=== PATIENT | male | born 1985 | race Asian ===

== ENCOUNTER 2020-07-04 17:47 | Emergency (ER) | payer SELFPAY ==
[~2020-07-04] VITALS: Ht 167.6 cm; Wt 68.1 kg
[2020-07-04] MEDS ORDERED: ONDANSETRON ODT 4 MG TAB.RAPDIS. PO ONE (18:15)
[2020-07-04] MEDS ORDERED: IV NORMAL SALINE 1000ML BAG 1,000 ML IV ONE (18:15)
--- NOTE | 2020-07-04 18:17 | PHYS DOC ---
Past Medical History Past Medical History: No Pertinent History Past Surgical History: No Surgical History Smoking Status: Current Every Day Smoker Alcohol Use: Heavy General Adult EDM: Chief Complaint: DIZZY/LIGHT HEADED HPI: HPI: History obtained from patient. Patient is a 34-year-old male with no reported past medical history who presents with chief complaint of lightheadedness. Patient states he was hospitalized yesterday for alcohol intoxication. He states he was discharged home approximately 6 hours ago. He states ever since being discharged he has felt lightheaded. He notes some associated nausea. He states he has had some chest aching sensation that is been constant for 6 hours. He is unsure whether he was hit in the chest last night. He states it is worse when you push on his chest. Does note some associated shortness of breath. States that he was trying to find his way home and asked police for help and they encouraged him to go to the emergency department due to his symptoms. Denies any feelings of irregular rapid heartbeat. Denies syncope. Denies vertiginous symptoms. Denies headache. States that he did drink quite a bit last night. He is unsure exactly how much. He denies any drug use outside of marijuana. History of coronary artery disease. Denies history of blood clot in legs or lungs. Chart review was performed and patient was hospitalized last night for alcohol induced pancreatitis. His urine drug screen was positive for amphetamines and marijuana. He denies any amphetamine usage to me. No other complaints. Patient denies any history of immobilization greater than 48 hours, recent hospitalizations, recent surgery, recent trauma, , oral contraceptive usage, hormone replacement therapy, air travel greater than 8 hours, recent infectious disease, or general deterioration of their overall condition. Review of Systems: Review of Systems: Constitutional: Denies fever or chills. [] Eyes: Denies change in visual acuity. [] HENT: Denies nasal congestion or sore throat. [] Respiratory: Positive shortness of breath Cardiovascular: positive for chest pain GI: Denies abdominal pain, nausea, vomiting, bloody stools or diarrhea. [] : Denies dysuria. [] Musculoskeletal: Denies back pain or joint pain. [] Integument: Denies rash. [] Neurologic: Denies headache, focal weakness or sensory changes. [] Endocrine: Denies polyuria or polydipsia. [] Lymphatic: Denies swollen glands. [] Psychiatric: Denies depression or anxiety. [] Heart Score: Risk Factors: Risk Factors: DM, Current or recent (<one month) smoker, HTN, HLP, family history of CAD, obesity. Risk Scores: Score 0 - 3: 2.5% MACE over next 6 weeks - Discharge Home Score 4 - 6: 20.3% MACE over next 6 weeks - Admit for Clinical Observation Score 7 - 10: 72.7% MACE over next 6 weeks - Early Invasive Strategies Allergies: Allergies: Allergies Coded Allergies Type Severity Reaction Last Updated Verified No Known Drug Allergies 07/03/20 No Physical Exam: PE: Constitutional: Well developed, well nourished, no acute distress, non-toxic appearance. [] HENT: Normocephalic, atraumatic, bilateral external ears normal, oropharynx moist, no oral exudates, nose normal. [] Eyes: PERRLA, EOMI, conjunctiva normal, no discharge. [] Neck: Normal range of motion, no tenderness, supple, no stridor. [] Cardiovascular:Heart rate regular rhythm, no murmur [] Lungs & Thorax: Bilateral breath sounds clear to auscultation [] Abdomen: Bowel sounds normal, soft, no tenderness, no masses, no pulsatile masses. [] Skin: Warm, dry, no erythema, no rash. [] Back: No tenderness, no CVA tenderness. [] Extremities: No tenderness, no cyanosis, no clubbing, ROM intact, no edema. [] Neurologic: Alert and oriented X 3, normal motor function, normal sensory function, no focal deficits noted. [] Psychologic: Affect normal, judgement normal, mood normal. [] Current Patient Data: Labs: Laboratory Tests Test 07/04/20 18:25 White Blood Count 10.8 x10^3/uL Red Blood Count 4.67 x10^6/uL Hemoglobin 14.5 g/dL Hematocrit 42.9 % Mean Corpuscular Volume 92 fL Mean Corpuscular Hemoglobin 31 pg Mean Corpuscular Hemoglobin Concent 34 g/dL Red Cell Distribution Width 12.6 % Platelet Count 242 x10^3/uL Neutrophils (%) (Auto) 72 % Lymphocytes (%) (Auto) 20 % Monocytes (%) (Auto) 7 % Eosinophils (%) (Auto) 1 % Basophils (%) (Auto) 0 % Neutrophils # (Auto) 7.8 x10^3/uL Lymphocytes # (Auto) 2.2 x10^3/uL Monocytes # (Auto) 0.7 x10^3/uL Eosinophils # (Auto) 0.1 x10^3/uL Basophils # (Auto) 0.0 x10^3/uL Sodium Level 138 mmol/L Potassium Level 3.5 mmol/L Chloride Level 101 mmol/L Carbon Dioxide Level 32 mmol/L Anion Gap 5 Blood Urea Nitrogen 16 mg/dL Creatinine 0.9 mg/dL Estimated GFR (Cockcroft-Gault) 97.8 Glucose Level 102 mg/dL Calcium Level 8.8 mg/dL Troponin I Quantitative < 0.017 ng/mL Current Medications Medications (Trade) Dose Ordered Sig/Mable Route PRN Reason Start Time Stop Time Status Last Admin Dose Admin Sodium Chloride 1,000 ml @ 1,000 mls/hr 1X ONCE IV 07/04/20 18:15 07/04/20 19:14 07/04/20 18:35 Ondansetron HCl (Zofran Odt) 4 mg 1X ONCE PO 07/04/20 18:15 07/04/20 18:16 DC 07/04/20 18:34 EKG: EKG: EKG consistent with normal sinus rhythm. Ventricular rate of 80 bpm. [place] normal. Intervals normal. No acute ischemic changes. Otherwise normal EKG. [] Radiology/Procedures: Radiology/Procedures: [] Course & Med Decision Making: Course & Med Decision Making Pertinent Labs and Imaging studies reviewed. (See chart for details) [] Patient is a well-appearing 34-year-old male who presents with chief complai nt of lightheadedness associated with nausea. Initial vital signs normal. EKG unremarkable. Chest x-ray nonacute. Labs have been unremarkable as well. Patient was given IV fluid bolus. On repeat examination he is eating food in the room without difficulty. He states he is feeling much better after receiving fluids. Chart review was performed and patient was recently hospita lized for alcoholic induced pancreatitis. Yesterday he did have an elevated alcohol level. Overall have low suspicion for emergent etiology regarding the patient's symptoms. No red flag signs or symptoms regarding his lightheadedness. This could be related to his recent drug and alcohol usage. Or dehydration. At this time I do feel the patient is appropriate for discharge home. He was encouraged on substance abuse cessation. He was encouraged to drink plenty of fluids at home. Instructed to follow-up with his primary care physician in the next 2 to 3 days. He was able to tolerate p.o. and ambulate without assistance prior to discharge. Return precautions discussed and understood. Stable for discharge home. Lana Disclaimer: Lana Disclaimer: This electronic medical record was generated, in whole or in part, using a voice recognition dictation system. Departure Departure Impression: Primary Impression: Lightheadedness Disposition: 01 DC HOME SELF CARE/HOMELESS Condition: STABLE Referrals: NO PCP (PCP) Patient Instructions: Alcohol and Drug Addiction, Finding Treatment Additional Instructions: [facility] [address] [place] [address] [facility] [address] [place] [address] [facility] [address] [facility] [place] [address] [facility] [address] [place] [address] [facility] [address] [place] [address] [facility] [address] [place] [address] [facility] [address] [place] [address] [facility] [address] [place] [address] [facility] [address] [place] [address] [facility] [address] [place] [address] Scripts Ondansetron Hcl (ZOFRAN) 4 Mg Tablet 4 MG PO PRN TID PRN for NAUSEA, #9 nausea/vomiting Prov: EDGAR AMADOR DO 07/04/20 EDGAR AMADOR DO Jul 04, 2020 18:17
[2020-07-04 18:41] LABS: RED BLOOD COUNT 4.67 x10^6/uL (4.30-5.70); WHITE BLOOD COUNT 10.8 x10^3/uL (4.0-11.0)
[2020-07-04 18:42] LABS: BASO % 0 % (0-3); EOS # 0.1 x10^3/uL (0.0-0.7); EOS % 1 % (0-3); HEMATOCRIT 42.9 % (39.0-53.0); HEMOGLOBIN 14.5 g/dL (13.0-17.5); LYMPH # 2.2 x10^3/uL (1.0-4.8); LYMPH % 20 % (24-48); MEAN CORPUSCULAR HEMOGLOBIN 31 pg (25-35); MEAN CORPUSCULAR HGB CONC 34 g/dL (31-37); MEAN CORPUSCULAR VOLUME 92 fL (79-100); MONO # 0.7 x10^3/uL (0.0-1.1); MONO % 7 % (0-9); NEUT # 7.8 x10^3/uL (1.8-7.7); NEUT % 72 % (31-73); PLATELET COUNT 242 x10^3/uL (140-400); RED CELL DISTRIBUTION WIDTH 12.6 % (11.5-14.5)
[2020-07-04 18:48] LABS: CALCIUM 8.8 mg/dL (8.5-10.1); CREATININE 0.9 mg/dL (0.7-1.3); GFR 97.8; POTASSIUM 3.5 mmol/L (3.5-5.1)
[2020-07-04] MEDS ORDERED: ONDA4TAB7 PO (19:03)
--- NOTE | 2020-07-04 19:07 | RAD ---
Examination: CHEST AP ONLY History: Reason: CP / Comparison: 07/03/2020 AP view of the chest. Findings: AP portable upright frontal view of the chest was obtained. The cardiomediastinal silhouette is normal. Lungs are clear. There is no pneumothorax. No pleural effusion is appreciated. No acute bone abnormality. IMPRESSION: No acute cardiopulmonary process. Electronically signed by: Riaz Jacinto MD (07/04/2020 7:04 PM) [facility]
[2020-07-04 19:26] VITALS: BP 130/83
--- NOTE | 2020-07-05 14:17 | EKG ---
[facility] [address] [place] [address] Test Date: 2020-07-04 Test Time: 18:18:47 Pat Name: ÁNGELA HOUSTON Department: Room: Gender: M Public Relations Intern: : 1985 Requested By: EDGAR AMADOR Order Number: [id number] Reading MD: Measurements Intervals [place] Rate: 80 P: 59 MS: 184 QRS: 63 QRSD: 90 T: 51 QT: 356 QTc: 414 Interpretive Statements SINUS RHYTHM OTHERWISE NORMAL ECG RI6.02 No previous ECG available for comparison
== END 2020-07-04 19:30 | disposition home or self-care (01) ==
LOC: ER 17:47
DX: R42 Dizziness and giddiness (principal); R11.0 Nausea; R07.89 Other chest pain; F17.200 Nicotine dependence, unspecified, uncomplicated
CPT/HCPCS: 36415; 71045; 80048; 84484; 85025; 93005; 96360; 99285; J7030

== ENCOUNTER 2020-09-12 23:24 | Emergency (ER) | payer SELFPAY ==
[~2020-09-12] VITALS: Ht 167.6 cm; Wt 84.1 kg
[~2020-09-12 23:24] MED LIST: ONDA4TAB7 PO
[2020-09-12 23:26] VITALS: BP 130/83
[2020-09-12] MEDS ORDERED: IBUPROFEN 400 MG TABLET. PO ONE (23:30)
--- NOTE | 2020-09-13 00:22 | RAD ---
LEFT ANKLE AP, LATERAL Clinical Indication: Reason: ankle pain / Spl. Instructions: / History: Comparison: None. Findings: Sensitivity decreased without third view. There is acute traumatic nondisplaced transverse fracture of the medial malleolus. Additional nondisp laced fracture lines may be present. There is a sliver of bone medial to the medial malleolus which c ould be a fracture fragment. There is mild medial ankle soft tissue swelling. There is ankle joint ef fusion. Visualized bones of the foot unremarkable. Distal fibula appears intact. IMPRESSION: Acute traumatic nondisplaced fracture of the medial malleolus. Electronically signed by: Stanford Rudolph MD (09/13/2020 12:19 AM) KEY
--- NOTE | 2020-09-13 00:39 | PHYS DOC ---
Past Medical History Past Medical History: No Pertinent History Past Surgical History: No Surgical History Smoking Status: Current Every Day Smoker Alcohol Use: Heavy Adult General Chief Complaint Chief Complaint: LOWEREXTREMITY INJURY HPI HPI Patient is a 34 year old male presenting the emergency department complaining of the sudden ankle pain. Patient states that he ate started fracture after a fall approximately 2 weeks ago but did not get any orthopedic follow-up and at this point with himself. Patient states it is bothering him today. No additional injury. States that he was more sore today after walking that day. Denies any additional symptoms. Review of Systems Review of Systems Constitutional: Denies fever or chills [] Eyes: Denies change in visual acuity, redness, or eye pain [] HENT: Denies nasal congestion or sore throat [] Respiratory: Denies cough or shortness of breath [] Cardiovascular: No additional information not addressed in HPI [] GI: Denies abdominal pain, nausea, vomiting, bloody stools or diarrhea [] : Denies dysuria or hematuria [] Musculoskeletal: Denies back pain or joint pain [] Integument: Denies rash or skin lesions [] Neurologic: Denies headache, focal weakness or sensory changes [] Endocrine: Denies polyuria or polydipsia [] All other systems were reviewed and found to be within normal limits, except as documented in this note. Current Medications Current Medications Current Medications Medications (Trade) Dose Ordered Sig/[facility] Start Time Stop Time Status Last Admin Dose Admin Ibuprofen (Motrin) 800 mg 1X ONCE 09/12/20 23:30 09/12/20 23:33 DC Allergies Allergies Allergies Coded Allergies Type Severity Reaction Last Updated Verified No Known Drug Allergies 07/03/20 No Physical Exam Physical Exam Constitutional: Well developed, well nourished, no acute distress, non-toxic appearance. [] HENT: Normocephalic, atraumatic, bilateral external ears normal, oropharynx moist, no oral exudates, nose normal. [] Eyes: PERRLA, EOMI, conjunctiva normal, no discharge. [] Neck: Normal range of motion, no tenderness, supple, no stridor. [] Cardiovascular:Heart rate regular rhythm, no murmur [] Lungs & Thorax: Bilateral breath sounds clear to auscultation [] Abdomen: Bowel sounds normal, soft, no tenderness, no masses, no pulsatile ma sses. [] Skin: Warm, dry, no erythema, no rash. [] Back: No tenderness, no CVA tenderness. [] Extremities: No tenderness, no cyanosis, no clubbing, ROM intact, no edema. [] Neurologic: Alert and oriented X 3, normal motor function, normal sensory function, no focal deficits noted. [] Psychologic: Affect normal, judgement normal, mood normal. [] EKG EKG [] Radiology/Procedures Radiology/Procedures [] Course & Med Decision Making Course & Med Decision Making Pertinent Labs and Imaging studies reviewed. (See chart for details) 34M to have his left ankle recheck. We will obtain her repeat x-ray to make sure there is no worsening of fracture or displacement. X-ray does demonstrate left medial malleolus fracture with no significant displacement. Will replace splint and discharge patient I spoken with the patient and her caregivers. I explained the patient's condition, diagnoses and treatment plan based on the information available to me at this time. I have answered the patient and her caregiver's questions and addressed any concerns. The patient and her caregivers have a good understanding of patient's diagnosis, condition and treatment plan as can be expected at this point. Vital signs have been stable. Patient's condition is stable and appropriate for discharge from the emergency department. Patient will pursue further outpatient evaluation with primary care physician or other designated or consulting physician as outlined in the discharge instructions. The patient and/or caregivers are agreeable to this plan of care and follow-up instructions have been explained in detail. The patient and/or caregivers have received these instructions in written form and have expressed an understanding of the discharge instructions. The patient and/or caregivers are aware that any significant change of condition or worsening of symptoms should prompt immediate return to this or the closest emergency department or call to 911. Dragon Disclaimer Dragon Disclaimer This electronic medical record was generated, in whole or in part, using a voice recognition dictation system. Departure Departure Impression: Primary Impression: Ankle fracture, left Disposition: 01 DC HOME SELF CARE/HOMELESS Condition: GOOD Referrals: NO PCP (PCP) CORI BORRERO MD Patient Instructions: Ankle Fracture Additional Instructions: EMERGENCY DEPARTMENT GENERAL DISCHARGE INSTRUCTIONS Thank you for coming to [facility] Emergency Department (ED) today and trusting us with you care. We trust that you had a positive experience in our Emergency Department. If you wish to speak to the department management, you may call the Director at [phone]. YOUR FOLLOW UP INSTRUCTIONS ARE FOLLOWS: 1. Do you have a private Doctor? If you do not have a private doctor, please ask for a resource list of physicians or clinics that may be able to assist you with follow up care. 2. The Emergency Physicain has interpreted your x-rays. The X-Ray specialist will also review them. If there is a change in the findings, you will be notified in 48 hours when at all possible. 3. A lab test or culture has been done, your results will be reviewed and you will be notified if you need a change in treatment. ADDITIONAL INSTRUCTIONS AND INFORMATION: 1. Your care today has been supervised by a physician who is specially trained in emergency care. Many problems require more than one evaluation for a complete diagnosis and treatment. We recommend that you schedule your follow up appointment as recom mended to ensure complete treatment of you illness or injury. If you are unable to obtain follow up care and continue to have a problem, or if your condition worsens, we recommend that you return to the ED. 2. We are not able to safely determine your condition over the phone nor are we able to give sound medical advice over the phone. For these safety reasons, if you call for medical advice we will ask you to come to the ED for further evaluation. 3. If you have any questions regarding these discharge instructions please call the ED at [phone]. SAFETY INFORMATION: In the interest of safety, wellness, and injury prevention; we encourage you to wear your sealbelt, if you smoke; quite smoking, and we encourage family to use a protective helmet for bicycling and other sporting events that present an increased risk for head injury. IF YOUR SYMPTOMS WORSEN OR NEW SYMPTOMS DEVELOP, OR YOU HAVE CONCERNS ABOUT YOUR CONDITION; OR IF YOUR CONDITION WORSENS WHILE YOU ARE WAITING FOR YOUR FOLLOW UP APPOINTMENT; EITHER CONTACT YOUR PRIMARY CARE DOCTOR, THE PHYSICIAN WHOSE NAME AND NUMBER YOU WERE GIVEN, OR RETURN TO THE ED IMMEDIATELY. HANH GAGE MD Sep 13, 2020 00:39
== END 2020-09-13 01:14 | disposition home or self-care (01) ==
LOC: ER 23:24
DX: S82.892A Other fracture of left lower leg, initial encounter for closed fracture (principal); F17.200 Nicotine dependence, unspecified, uncomplicated; F10.20 Alcohol dependence, uncomplicated; Y90.9 Presence of alcohol in blood, level not specified; W18.39XA Other fall on same level, initial encounter; Y93.89 Activity, other specified; Y92.89 Other specified places as the place of occurrence of the external cause; Y99.8 Other external cause status
CPT/HCPCS: 73600; 99283

== ENCOUNTER 2020-12-23 22:22 | Emergency (ER) | payer SELFPAY ==
[~2020-12-23] VITALS: Ht 167.6 cm; Wt 68.2 kg
--- NOTE | 2020-12-23 22:34 | PHYS DOC ---
Past Medical History Past Medical History: No Pertinent History Past Surgical History: No Surgical History Smoking Status: Current Every Day Smoker Alcohol Use: Heavy General Adult HPI: HPI: Patient is a 35-year-old male presenting via EMS for back pain. This is a chronic issue for him. Per EMS, patient went over to brother's house for which she has a restraining order. Police were called and on arrival, patient sat down on the ground and refused to get up. Because of this, EMS was called and patient was transferred to our facility. Patient has history of polysubstance abuse but does not disclose this, takes no daily medications on a daily basis, and is homeless. No trauma, chronic steroid use, history of IV drug use, fever, weight loss, or any other concerning red flag signs or symptoms of back pain. He is requesting food and Percocet Review of Systems: Review of Systems: Fourteen body systems of review of systems have been reviewed. See HPI for perti nent positives and negative responses, other chaves all other systems are negative, non-pertinent or non-contributory Heart Score: C/O Chest Pain: No HEART Score for Chest Pain: HEART Score for Chest Pain Response (Comments) Value History Slighlty/Non-Suspicious 0 Age < 45 0 Total 0 Risk Factors: Risk Factors: DM, Current or recent (<one month) smoker, HTN, HLP, family history of CAD, obesity. Risk Scores: Score 0 - 3: 2.5% MACE over next 6 weeks - Discharge Home Score 4 - 6: 20.3% MACE over next 6 weeks - Admit for Clinical Observation Score 7 - 10: 72.7% MACE over next 6 weeks - Early Invasive Strategies Allergies: Allergies: Allergies Coded Allergies Type Severity Reaction Last Updated Verified No Known Drug Allergies 07/03/20 No Physical Exam: PE: Constitutional: Pt is oriented to person, place, and time. Pt appears unkept and homeless with poor personal hygiene demonstrated HEENT: Head: Normocephalic and atraumatic. External ears unremarkable, no hicks sign Conjunctivae and EOM are normal. Pupils are equal, round, and reactive to light. Oropharynx is clear and dry. No hematomas or lacerations or abrasions to face or scalp OP clear, no blood, no malocclusion, dentition intact Nares clear, no nasal septal hematoma Midface stable Neck: C-spine midline nontender, no step-offs Cardiovascular: Normal rate, regular rhythm and normal heart sounds. Pulmonary/Chest: Effort normal and breath sounds normal. No respiratory distress. No wheezes. CTA bilaterally Abdominal: Soft. Bowel sounds are normal. Pt exhibits no distension. There is no tenderness. Musculoskeletal: No bony tenderness to extremities, no deformities, full ROM extremities Chest wall stable Pelvis stable and non-tender No vertebral TTP and spine without stepoffs Patient has palpable area of tenderness to paravertebral muscle body on right mid thoracic area without any visible or palpable abnormalities Neurological: Pt is alert and oriented to person, place, and time. Moving all extremities willfully, able to wiggle all fingers and toes Alert and oriented x 3 Motor and sensory function intact Skin: Skin is warm and dry. No abrasions, no lacerations Psychiatric: Manipulative behavior Current Patient Data: Vital Signs: Vital Signs Date Time Temp Pulse Resp B/P (MAP) Pulse Ox O2 Delivery O2 Flow Rate FiO2 12/23/20 22:25 98.5 84 18 134/82 (99) 99 Room Air 98.5 Vital Signs Date Time Temp Pulse Resp B/P (MAP) Pulse Ox O2 Delivery O2 Flow Rate FiO2 12/23/20 22:25 98.5 84 18 134/82 (99) 99 Room Air 98.5 EKG: EKG: [] Radiology/Procedures: Radiology/Procedures: [] Course & Med Decision Making: Course & Med Decision Making Vital signs stable, HPI nonconcerning for any reported red flag signs or symptoms of back pain, physical examination also nonconcerning for any emergent/surgical processes I discussed diagnosis of back pain in an otherwise well-appearing patient, I reviewed unremarkable physical exam, I discussed need for supportive care practices with close PCP follow-up Patient angered by this. He is stating " just get me a Percocet or something and I will leave". I denied this request. Reports he cannot walk. This contradicts report from police and EMS on scene where patient was walking freely and ambulating without difficulty. I discussed this with patient, he was angry Ultimately, I discussed role of providing supportive care practices, I offered low-dose muscle relaxer and Toradol IM while in ER which he received. Continuing to demand narcotics, asking if Toradol is in the same family as Percocet and [place]. I requested patient leave ER as there is nothing more to offer him Code esther was called, security assisted getting patient in wheelchair and wheeling him out to the waiting room While in waiting room, patient was found sleeping in position on ground. Healthcare professional came out to address patient and he got up on his own well and started walking. Patient was given strict return precautions with close PCP follow-up advised Lana Disclaimer: Lana Disclaimer: This electronic medical record was generated, in whole or in part, using a voice recognition dictation system. Departure Departure Impression: Primary Impression: Chronic back pain Disposition: HOME / SELF CARE / HOMELESS Condition: STABLE Referrals: NO PCP (PCP) Patient Instructions: Back Exercises, Back Pain, Adult Additional Instructions: You were evaluated in the Emergency Department today for back pain. Your evaluat ion suggests no acute abnormalities which require further intervention at this time. Your pain is most likely due to to a musculoskeletal cause that should improve with supportive care. - Move around as tolerated but avoiding heavy lifting. ``Bed rest is not recommended nor is it the best treatment for low back pain. - Medications will help control your discomfort: - -Ibuprofen (800 mg every 8 hours for pain) with food. - -Tylenol - Do not drink alcohol, drive a car, operate machinery, or get up on ladders or heights when taking any prescribed pain medications. - Do not drive home if you received prescribed pain medications here in the ED. Return to the ED immediately if you develop any of the following problems: - Leaking urine or difficulty urinating; - Inability to control your bowels; - New numbness or weakness in your legs or numbness between your legs; - Inability to walk - Fever LILIANA CORADO DO December 23, 2020 22:34
[2020-12-23] MEDS ORDERED: CYCLOBENZAPRINE 10 MG TABLET. PO ONE (23:45)
[2020-12-23] MEDS ORDERED: LIDOCAINE (700MG/PATCH) PATCH. TD ONE (23:45)
[2020-12-23] MEDS ORDERED: KETOROLAC 60 MG/2 ML VIAL. IM ONE (23:45)
== END 2020-12-24 00:15 | disposition home or self-care (01) ==
LOC: ER 22:22
DX: G89.29 Other chronic pain (principal); M54.5 Low back pain; F17.200 Nicotine dependence, unspecified, uncomplicated; F10.20 Alcohol dependence, uncomplicated; Y90.9 Presence of alcohol in blood, level not specified; Z59.0 Homelessness
CPT/HCPCS: 96372; 99283; J1885